=== PATIENT | male | born 1980 | race Caucasian/White ===

== ENCOUNTER 2017-09-29 08:37 | Emergency (ER) | payer SELFPAY ==
[2017-09-29] MEDS ORDERED: Sodium Chloride 0.9% 1,000 ML IV ONE (08:48)
[2017-09-29] MEDS ORDERED: Ketorolac 30 MG/ML SDV IVPUSH ONE (08:48)
[2017-09-29] MEDS ORDERED: Ondansetron 4 MG/2 ML SDV IVPUSH ONE (08:48)
[2017-09-29] MEDS ORDERED: Tamsulosin 0.4 MG Cap.ER PO ONE (08:48)
[2017-09-29] MEDS ORDERED: HYDROmorphone 1 MG/ML Syringe IVPUSH ONE (09:00)
--- NOTE | 2017-09-29 09:11 | EDM.PDOC ---
ED HPI GENERAL MEDICAL PROBLEM - General Chief Complaint: Flank Pain Stated Complaint: LOWER BACK AND ABD PAIN Time Seen by Provider: 09/29/17 09:10 - History of Present Illness INITIAL COMMENTS - FREE TEXT/NARRATIVE: HISTORY AND PHYSICAL: History of present illness: 37-year-old white male presents with acute right flank pain with associated nausea vomiting began yesterday's got worse today he has history of urolithiasis he denies fever chills Review of systems: As per history of present illness and below otherwise all systems reviewed and negative. Past medical history: As per history of present illness and as reviewed below otherwise noncontributory. Surgical history: As per history of present illness and as reviewed below otherwise noncontributory. Social history: No reported history of drug or alcohol abuse. Family history: As per history of present illness and as reviewed below otherwise noncontributory. Physical exam: HEENT: Atraumatic, normocephalic, pupils reactive, negative for conjunctival pallor or scleral icterus, mucous membranes moist, throat clear, neck supple, nontender, trachea midline. Lungs: Clear to auscultation, breath sounds equal bilaterally, chest nontender. Heart: S1S2, regular, negative for clicks, rubs, or JVD. Abdomen: Soft, nondistended, nontender. Negative for masses or hepatosplenomegaly. Right side costovertebral tenderness. Pelvis: Stable nontender. Genitourinary: Deferred. Rectal: Deferred. Extremities: Atraumatic, negative for cords or calf pain. Neurovascular unremarkable. Neuro: Awake, alert, oriented. Cranial nerves II through XII unremarkable. Cerebellum unremarkable. Motor and sensory unremarkable throughout. Exam nonfocal. Diagnostics: CBC CMP UA urine culture CT abdomen and pelvis Therapeutics: Normal saline 1 L bolus and Toradol 30 mg IV Zofran 4 mg IV Flomax 0.4 mg by mouth and Dilaudid 1 mg IV Impression: #1 acute right flank pain #2 history of urolithiasis Definitive disposition and diagnosis as appropriate pending reevaluation and review of above. Right Flank Pain Score (Numeric/FACES): 10 - Related Data Allergies Allergy/AdvReac Type Severity Reaction Status Date / Time No Known Allergies Allergy Verified 09/29/17 08:47 Home Meds: Home Meds Diclofenac Sodium [Voltaren] 09/29/17 [History] Past Medical History HEENT History: Reports: None Cardiovascular History: Reports: Heart Murmur Respiratory History: Reports: None Gastrointestinal History: Reports: None Genitourinary History: Reports: Renal Calculus Musculoskeletal History: Reports: None Neurological History: Reports: None Psychiatric History: Reports: None Endocrine/Metabolic History: Reports: None Hematologic History: Reports: None Immunologic History: Reports: None Oncologic (Cancer) History: Reports: None Dermatologic History: Reports: None - Infectious Disease History Infectious Disease History: Reports: Chicken Pox - Past Surgical History GI Surgical History: Reports: Hernia, Inguinal Male Surgical History: Reports: Kidney Stone Extraction, Vasectomy Social & Family History - Family History Family Medical History: Unobtainable - Tobacco Use Smoking Status *Q: Never Smoker Years of Tobacco use: 10 Used Tobacco, but Quit: No Second Hand Smoke Exposure: No - Alcohol Use Days Per Week of Alcohol Use: 0 - Recreational Drug Use Recreational Drug Use: No ED ROS GENERAL - Review of Systems Review Of Systems: ROS reveals no pertinent complaints other than HPI. ED EXAM, GENERAL - Physical Exam Exam: See Below (Dictation) Course - Vital Signs Last Recorded V/S: Last Vital Signs Temp 35.8 C 09/29/17 08:44 Pulse 78 09/29/17 09:33 Resp 16 09/29/17 09:33 BP 145/74 H 09/29/17 08:44 Pulse Ox 99 09/29/17 09:33 - Orders/Labs/Meds Orders: Active Orders 24 hr Category Date Time Status Abdomen Pelvis wo Cont [CT] Stat Exams 09/29/17 08:46 Taken CULTURE URINE [RM] Stat Lab 09/29/17 09:40 Received Labs: Laboratory Tests 09/29/17 09/29/17 09/29/17 Range/Units 08:51 08:51 09:40 WBC 9.78 (4.0-11.0) K/uL RBC 5.58 (4.50-5.90) M/uL Hgb 17.1 H (13.0-17.0) g/dL Hct 48.6 (38.0-50.0) % MCV 87.1 (80.0-98.0) fL MCH 30.6 (27.0-32.0) pg MCHC 35.2 (31.0-37.0) g/dL RDW Std Deviation 39.5 (28.0-62.0) fl RDW Coeff of Isa 12 (11.0-15.0) % Plt Count 339 (150-400) K/uL MPV 10.60 (7.40-12.00) fL Neut % (Auto) 67.7 (48.0-80.0) % Lymph % (Auto) 19.9 (16.0-40.0) % [place] % (Auto) 8.5 (0.0-15.0) % Eos % (Auto) 3.6 (0.0-7.0) % Baso % (Auto) 0.3 (0.0-1.5) % Neut # (Auto) 6.6 H (1.4-5.7) K/uL Lymph # (Auto) 2.0 (0.6-2.4) K/uL [place] # (Auto) 0.8 (0.0-0.8) K/uL Eos # (Auto) 0.4 (0.0-0.7) K/uL Baso # (Auto) 0.0 (0.0-0.1) K/uL Nucleated RBC % 0.0 /100WBC Nucleated RBCs # 0 K/uL Sodium 141 (136-148) mmol/L Potassium 3.6 (3.5-5.1) mmol/L Chloride 104 (98-107) mmol/L Carbon Dioxide 25.5 (21.0-32.0) mmol/L BUN 16 (7.0-18.0) mg/dL Creatinine 1.2 (0.8-1.3) mg/dL Est Cr Clr Drug Dosing 88.02 mL/min Estimated GFR (MDRD) > 60.0 ml/min Glucose 143 H (74-106) mg/dL Calcium 8.8 (8.5-10.1) mg/dL Total Bilirubin 1.0 (0.2-1.0) mg/dL AST 23 (15-37) IU/L ALT 34 (14-63) IU/L Alkaline Phosphatase 74 (46-116) U/L Total Protein 7.4 (6.4-8.2) g/dL Albumin 3.9 (3.4-5.0) g/dL Globulin 3.5 (2.0-3.5) g/dL Albumin/Globulin Ratio 1.1 L (1.3-2.8) Urine Color YELLOW Urine Appearance CLEAR Urine pH 5.5 (5.0-8.0) Ur Specific [place] >= 1.030 (1.001-1.035) Urine Protein 100 (NEGATIVE) mg/dL Urine Glucose (UA) NEGATIVE (NEGATIVE) mg/dL Urine Ketones TRACE H (NEGATIVE) mg/dL Urine Occult Blood LARGE H (NEGATIVE) Urine Nitrite NEGATIVE (NEGATIVE) Urine Bilirubin SMALL H (NEGATIVE) Urine Ictotest NEGATIVE Urine Urobilinogen 0.2 (<2.0) EU/dL Ur Leukocyte Esterase NEGATIVE (NEGATIVE) Urine RBC 50-70 (0-2/HPF) Urine WBC 2-4 (0-5/HPF) Ur Squamous Epith Cells RARE Urine Bacteria RARE (NEGATIVE) Urine Mucus HEAVY (NONE-MOD) Meds: Medications Discontinued Medications Generic Name Dose Route Start Last Admin Trade Name Freq PRN Reason Stop Dose Admin Hydromorphone HCl 1 mg 09/29/17 09:00 09/29/17 09:04 Dilaudid IVPUSH 09/29/17 09:01 1 mg ONETIME ONE Administration Sodium Chloride 1,000 mls @ 999 mls/hr 09/29/17 08:48 09/29/17 08:54 Normal Saline IV 09/29/17 09:48 999 mls/hr .Bolus ONE Administration Ketorolac Tromethamine 30 mg 09/29/17 08:48 09/29/17 08:54 Toradol IVPUSH 09/29/17 08:49 30 mg ONETIME ONE Administration Ondansetron HCl 4 mg 09/29/17 08:48 09/29/17 08:55 Zofran IVPUSH 09/29/17 08:49 4 mg ONETIME ONE Administration Tamsulosin HCl 0.4 mg 09/29/17 08:48 09/29/17 08:55 Flomax PO 09/29/17 08:49 0.4 mg ONETIME ONE Administration Departure - Departure Time of Disposition: 11:17 Disposition: Home, Self-Care 01 Condition: Good Clinical Impression: Ureterolithiasis - Discharge Information Referrals: PCP,None [Primary Care Provider] - Forms: ED Department Discharge Additional Instructions: The following information is given to patients seen in the emergency department who are being discharged to home. This information is to outline your options for follow-up care. We provide all patients seen in our emergency department with a follow-up referral. The need for follow-up, as well as the timing and circumstances, are variable depending upon the specifics of your emergency department visit. If you don't have a primary care physician on staff, we will provide you with a referral. We always advise you to contact your personal physician following an emergency department visit to inform them of the circumstance of the visit and for follow-up with them and/or the need for any referrals to a consulting specialist. The emergency department will also refer you to a specialist when appropriate. This referral assures that you have the opportunity for followup care with a specialist. All of these measure are taken in an effort to provide you with optimal care, which includes your followup. Under all circumstances we always encourage you to contact your private physician who remains a resource for coordinating your care. When calling for followup care, please make the office aware that this follow-up is from your recent emergency room visit. If for any reason you are refused follow-up, please contact the [facility] emergency department at and asked to speak to the emergency department charge nurse. \ Hydrocodone Flomax Zofran as prescribed follow-up urology referral call to schedule appointment Saturday return as needed as discussed - My Orders Last 24 Hours: My Active Orders 09/29/17 08:46 Abdomen Pelvis wo Cont [CT] Stat 09/29/17 09:40 CULTURE URINE [RM] Stat - Assessment/Plan Last 24 Hours: My Active Orders 09/29/17 08:46 Abdomen Pelvis wo Cont [CT] Stat 09/29/17 09:40 CULTURE URINE [RM] Stat
[2017-09-29 09:36] LABS: CHLORIDE,CL 104 mmol/L (98-107); SODIUM,NA 141 mmol/L (136-148)
[2017-09-29 11:40] VITALS: BP 121/72
--- NOTE | 2017-09-30 15:42 | CT ---
EXAM DATE: 09/29/17 PATIENT'S AGE: 37 Patient: BENI KNIGHT Facility: [place], [place] Site . Site : 1980 Study: CT Abdomen/Pelvis [id number] 10:48:34 AM Ordering Physician: Doctor Moss Final Report: INDICATION: flank pain HISTORY: Flank pain. COMPARISON: CT of the abdomen and pelvis 09/03/2014. TECHNIQUE: CT of the abdomen and pelvis. No intravenous contrast. Coronal/sagittal reconstruction images. FINDINGS: Lung bases: There is no pleural or pericardial effusion. The heart size is normal. The lung bases demonstrate no acute airspace disease. There is no basilar pneumothorax. Abdomen/pelvis: There is no solid hepatic mass. No dilation of intrahepatic biliary radicals. No perihepatic ascites. Spleen size is normal. No inflammatory changes about the gallbladder. No pancreatic mass or pancreatic duct dilation. No glandular atrophy. Mild right hydronephrosis and hydroureter. There is a paucity of perinephric fat stranding. There is a stone present at the right UVJ. This calculus measures 3 mm on series 201, image 154. The extraperitoneal space of [place] is clear. There is no left-sided urolith. Prostate, seminal vesicles, and colon are normal. There is no perienteric edema. No transition point to indicate a mechanical small bowel or colonic obstruction. Normal caliber appendix. No abdominal aortic aneurysm. There is no adenopathy by size criteria in the pelvis, retroperitoneum, gastrohepatic ligament, small bowel mesentery. The bone windows demonstrate no lytic or blastic bone lesions. The alignment is preserved. On sagittal reconstruction images, the vertebral body heights are maintained. IMPRESSION: 1. 3 mm stone at the right UVJ, with mild right hydronephrosis and hydroureter. 2. Normal caliber appendix. 3. No abdominal/pelvic lymphadenopathy. Dictated by Paul Gastelum MD @ 09/29/2017 11:02:09 AM Dictated by: Paul Gastelum MD @ 09/29/2017 11:02:27 (Electronic Signature) Report Signed by Proxy. [facility]ITALE[facility]
== END 2017-09-29 11:35 | disposition home or self-care (01) ==
LOC: MW.ED 08:37
DX: N13.2 Hydronephrosis with renal and ureteral calculous obstruction (principal)
CPT/HCPCS: 36415; 74176; 80053; 81001; 85025; 87086; 96361; 96374; 96375; 99284; A9270; J1170; J1885; J2405; J7040; 99283

== ENCOUNTER 2021-03-25 22:01 | Emergency (ER) | payer BC, OTHER ==
[2021-03-25] MEDS ORDERED: Sodium Chloride 0.9% 1,000 ML IV ONE (22:32)
[2021-03-25] MEDS ORDERED: Ondansetron 4 MG/2 ML SDV IVPUSH ONE (22:32)
--- NOTE | 2021-03-25 22:35 | EDM.PDOC ---
ED HPI GENERAL MEDICAL PROBLEM - General Chief Complaint: Drug or Alcohol Abuse Stated Complaint: POSSIBLE ALCOHOL POISONING Time Seen by Provider: 03/25/21 22:30 - History of Present Illness INITIAL COMMENTS - FREE TEXT/NARRATIVE: 40-year-old male presents complaining of drinking too much alcohol with dizziness and vomiting and unable to concentrate. Patient started drinking around 5 and drink beer and then a couple of shots. - Related Data Allergies Allergy/AdvReac Type Severity Reaction Status Date / Time No Known Allergies Allergy Verified 03/25/21 22:14 Home Meds: Home Meds . [No Known Home Meds] 03/25/21 [History] Past Medical History HEENT History: Reports: None Cardiovascular History: Reports: Heart Murmur Respiratory History: Reports: None Gastrointestinal History: Reports: None Genitourinary History: Reports: Renal Calculus Musculoskeletal History: Reports: None Neurological History: Reports: None Psychiatric History: Reports: None Endocrine/Metabolic History: Reports: None Hematologic History: Reports: None Immunologic History: Reports: None Oncologic (Cancer) History: Reports: None Dermatologic History: Reports: None - Infectious Disease History Infectious Disease History: Reports: Chicken Pox - Past Surgical History Head Surgeries/Procedures: Reports: None Cardiovascular Surgical History: Reports: None GI Surgical History: Reports: Hernia, Inguinal Male Surgical History: Reports: Kidney Stone Extraction, Vasectomy Social & Family History - Family History Family Medical History: Unobtainable - Tobacco Use Tobacco Use Status *Q: Never Tobacco User Second Hand Smoke Exposure: No - Caffeine Use Caffeine Use: Reports: None - Recreational Drug Use Recreational Drug Use: No ED ROS GENERAL - Review of Systems Review Of Systems: See Below Constitutional: Denies: Fever Respiratory: Reports: Shortness of Breath GI/Abdominal: Reports: Abdominal Pain Neurological: Reports: Confusion ED EXAM, GENERAL - Physical Exam Exam: See Below Free Text/Narrative:: CONSTITUTIONAL: well appearing in no acute distress SKIN: dry, and intact without rash HENT: Normocephalic, atraumatic, NECK: normal range of motion GI: Abdomen soft nontender nondistended PULMONARY: normal chest rise and fall, no respiratory distress or stridor NEUROLOGIC: normal speech, moves all extremities, grossly non-focal MUSCULOSKELETAL: no gross deformities, atraumatic PSYCHIATRIC: normal mood and affect Course - Vital Signs Text/Narrative:: Differential diagnosis: EtOH intoxication, pancreatitis, bowel obstruction, alcoholic hepatitis, head injury, other Patient presents as outlined above. Patient does have alcohol in his system is feeling better after sleeping in the emergency department. Is able to ambulate and is alert and oriented. No history or evidence of head trauma with soft abdomen. Supportive treat with return precautions and PCP follow-up. Last Recorded V/S: Last Vital Signs Temp 36.1 C 03/25/21 22:08 Pulse 66 03/25/21 23:22 Resp 12 03/25/21 23:22 BP 104/75 03/25/21 23:22 Pulse Ox 97 03/25/21 23:22 - Orders/Labs/Meds Labs: Laboratory Tests 03/25/21 03/25/21 Range/Units 23:00 23:00 WBC 7.43 (4.0-11.0) K/uL RBC 5.11 (4.50-5.90) M/uL Hgb 15.7 (13.0-17.0) g/dL Hct 45.0 (38.0-50.0) % MCV 88.1 (80.0-98.0) fL MCH 30.7 (27.0-32.0) pg MCHC 34.9 (31.0-37.0) g/dL RDW Std Deviation 39.9 (28.0-62.0) fl RDW Coeff of Isa 13 (11.0-15.0) % Plt Count 290 (150-400) K/uL MPV 11.00 (7.40-12.00) fL Neut % (Auto) 68.1 (48.0-80.0) % Lymph % (Auto) 19.5 (16.0-40.0) % [place] % (Auto) 8.1 (0.0-15.0) % Eos % (Auto) 3.9 (0.0-7.0) % Baso % (Auto) 0.4 (0.0-1.5) % Neut # (Auto) 5.1 (1.4-5.7) K/uL Lymph # (Auto) 1.5 (0.6-2.4) K/uL [place] # (Auto) 0.6 (0.0-0.8) K/uL Eos # (Auto) 0.3 (0.0-0.7) K/uL Baso # (Auto) 0.0 (0.0-0.1) K/uL Nucleated RBC % 0.0 /100WBC Nucleated RBCs # 0 K/uL Sodium 143 (136-148) mmol/L Potassium 3.9 (3.5-5.1) mmol/L Chloride 107 (98-107) mmol/L Carbon Dioxide 22.9 (21.0-32.0) mmol/L BUN 8 (7.0-18.0) mg/dL Creatinine 0.9 (0.8-1.3) mg/dL Est Cr Clr Drug Dosing 112.72 mL/min Estimated GFR (MDRD) > 60.0 ml/min Glucose 144 H (74-106) mg/dL Calcium 8.3 L (8.5-10.1) mg/dL Total Bilirubin 0.6 (0.2-1.0) mg/dL AST 20 (15-37) IU/L ALT 35 (14-63) IU/L Alkaline Phosphatase 81 (46-116) U/L Total Protein 6.9 (6.4-8.2) g/dL Albumin 3.7 (3.4-5.0) g/dL Globulin 3.2 (2.6-4.0) g/dL Albumin/Globulin Ratio 1.2 (0.9-1.6) Lipase 62 L (73-393) U/L Ethyl Alcohol 132 mg/dL Meds: Medications Discontinued Medications Generic Name Dose Route Start Last Admin Trade Name Freq PRN Reason Stop Dose Admin Sodium Chloride 1,000 mls @ 999 mls/hr 03/25/21 22:32 03/25/21 23:01 Normal Saline IV 03/25/21 23:32 999 mls/hr .BOLUS ONE Administration Ondansetron HCl 4 mg 03/25/21 22:32 03/25/21 23:03 Ondansetron 4 Mg/2 Ml Sdv IVPUSH 03/25/21 22:33 4 mg ONETIME ONE Administration Departure - Departure Time of Disposition: 00:20 Disposition: Home, Self-Care 01 Condition: Good Clinical Impression: Alcohol intoxication - Discharge Information Instructions: Alcohol Intoxication, [id number] Referrals: PCP,None [Primary Care Provider] - Forms: ED Department Discharge Additional Instructions: Return for abdominal pain, fever, change or worsening condition or lack of improvement. The following information is given to patients seen in the emergency department who are being discharged to home. This information is to outline your options for follow-up care. We provide all patients seen in our emergency department with a follow-up referral. The need for follow-up, as well as the timing and circumstances, are variable depending upon the specifics of your emergency department visit. If you don't have a primary care physician on staff, we will provide you with a referral. We always advise you to contact your personal physician following an emergency department visit to inform them of the circumstance of the visit and for follow-up with them and/or the need for any referrals to a consulting specialist. The emergency department will also refer you to a specialist when appropriate. This referral assures that you have the opportunity for follow-up care with a specialist. All of these measure are taken in an effort to provide you with optimal care, which includes your follow-up. Primary care clinics in the area: [facility] [address] [place] [address] [place] [address] Under all circumstances we always encourage you to contact your private physician who remains a resource for coordinating your care. When calling for follow-up care, please make the office aware that this follow-up is from your recent emergency room visit. If for any reason you are refused follow-up, please contact the [facility] Emergency Department at and asked to speak to the emergency department charge nurse. Sepsis Event Note (ED) - Evaluation Sepsis Screening Result: No Definite Risk - Focused Exam Vital Signs: Vital Signs Temp Pulse Resp BP Pulse Ox 03/25/21 23:22 66 12 104/75 97 03/25/21 22:08 36.1 C 104 H 18 106/80 97
[2021-03-25 23:26] LABS: BLOOD UREA NITROGEN,BUN 8 mg/dL (7.0-18.0); CARBON DIOXIDE,CO2 22.9 mmol/L (21.0-32.0); CHLORIDE,CL 107 mmol/L (98-107); GLUCOSE RANDOM 144 mg/dL (74-106); LIPASE 62 U/L (73-393); POTASSIUM,K 3.9 mmol/L (3.5-5.1); SODIUM,NA 143 mmol/L (136-148)
[2021-03-26 00:30] VITALS: BP 110/73; PULSE 67
== END 2021-03-26 00:32 | disposition home or self-care (01) ==
LOC: MW.ED 22:01
DX: F10.129 Alcohol abuse with intoxication, unspecified (principal); Y90.6 Blood alcohol level of 120-199 mg/100 ml
CPT/HCPCS: 36415; 80053; 80307; 83690; 85025; 96374; 99284; J2405; J7030

== ENCOUNTER 2025-01-25 19:07 | Emergency (ER) | payer BC ==
[2025-01-25] MEDS: Iopamidol 755 Mg/ML 100 ML Bottle IVPUSH ONE (19:38)
[2025-01-25] MEDS: Sodium Chloride 0.9% 10 ML Syringe FLUSH PRN (19:40)
[2025-01-25] MEDS: Sodium Chloride 0.9% 2.5 ML Syringe FLUSH PRN (19:40)
[2025-01-25 19:42] LABS: INR 1.07 (0.86-1.11); PTT,PARTIAL THROMBOPLSTIN TIME 27.6 SEC (23.9-30.7)
[2025-01-25 19:48] LABS: A/G RATIO 1.3 (0.9-1.6); ALANINE AMINOTRANSFERASE,ALT 40 IU/L (14-63); ASPARTATE AMNIOTRANSFERASE,AST 24 IU/L (15-37); BILIRUBIN TOTAL 0.9 mg/dL (0.2-1.0); BLOOD UREA NITROGEN,BUN 16 mg/dL (7.0-18.0); CARBON DIOXIDE,CO2 29.7 mmol/L (21.0-32.0); CHLORIDE,CL 101 mmol/L (98-107); CREATININE 1.2 mg/dL (0.8-1.3); EST CRCL DRUG DOSING (CG) 86.00 mL/min; ETHANOL BLOOD MEDICAL <3 mg/dL; GLUCOSE RANDOM 112 mg/dL (74-106); POTASSIUM,K 4.3 mmol/L (3.5-5.1); PROTEIN TOTAL,TP 7.7 g/dL (6.4-8.2); SODIUM,NA 138 mmol/L (136-148)
[2025-01-25 19:50] LABS: ESTIMATED GFR 75 mL/min (>60)
[2025-01-25 19:51] LABS: BASOPHILS ABSOLUTE AUTO 0.06 K/uL (0.00-0.20); BASOPHILS PERCENT AUTO 0.4 % (0.0-1.0); EOSINOPHILS ABSOLUTE AUTO 0.23 K/uL (0.00-0.45); EOSINOPHILS PERCENT AUTO 1.6 % (0.0-6.0); IMMATURE GRAN ABSOLUTE AUTO 0.08 K/uL (0.00-0.05); IMMATURE GRAN PERCENT AUTO 0.6 % (0.0-0.4); LYMPHOCYTES ABSOLUTE AUTO 1.55 K/uL (1.00-4.80); LYMPHOCYTES PERCENT AUTO 10.9 % (24.0-44.0); MEAN PLATELET VOLUME 10.3 fL (9.4-12.4); MONOCYTES ABSOLUTE AUTO 1.11 K/uL (0.00-0.80); MONOCYTES PERCENT AUTO 7.8 % (0.0-8.0); NEUTROPHILS ABSOLUTE AUTO 11.14 K/uL (1.80-7.70); NEUTROPHILS PERCENT AUTO 78.7 % (41.0-71.0); NRBC ABSOLUTE 0.00 K/uL (0.00-0.02); NRBC PERCENT 0.0 /100WBC (0.0-0.2); PLATELET COUNT,PLT 349 K/uL (150-400); RED BLOOD CELL COUNT 5.73 M/uL (4.52-5.90); WHITE BLOOD CELL COUNT,WBC 14.17 K/uL (3.9-11.3)
[2025-01-25 20:29] LABS: APPEARANCE,URINE CLEAR; GLUCOSE,URINE NEGATIVE (NEGATIVE); OCCULT BLOOD,URINE NEGATIVE (NEGATIVE)
[2025-01-25 20:39] LABS: AMPHETAMINES SCREEN, URINE NEGATIVE (CUTOFF=500); BUPRENORPHINE SCREEN,URINE NEGATIVE (CUTOFF=10); METHADONE SCREEN, URINE NEGATIVE (CUTOFF=200); METHAMPHETAMINES SCREEN, URINE NEGATIVE (CUTOFF=500); OXYCODONE SCREEN,URINE NEGATIVE (CUT0FF=100); PCP SCREEN,URINE NEGATIVE (CUTOFF=25); THC SCREEN,URINE 20 NG/ML NEGATIVE (CUTOFF=50)
== END 2025-01-25 21:00 | disposition home or self-care (01) ==
LOC: MW.ED 19:07
DX: S20.212A Contusion of left front wall of thorax, initial encounter (principal); W20.8XXA Other cause of strike by thrown, projected or falling object, initial encounter; Y93.89 Activity, other specified; Y99.0 Civilian activity done for income or pay
CPT/HCPCS: 36415; 71045; 71260; 74177; 80053; 80305; 80307; 81003; 83690; 85025; 85610; 85730; 96374; 99284; J2270; Q9967; 99283